=== PATIENT | male | born 1980 | race Caucasian/White ===

== ENCOUNTER 2020-09-08 20:50 | Inpatient (IN) ==
[~2020-09-08 20:50] MED LIST: ATROPINE SULFATE 0.1 MG/ML 10ML SYR IV ONE; CALCIUM CHLORIDE 10% 10 ML SYR IV ONE; MAGNESIUM SULFATE 1GM / D5W BAG IV ONE
[2020-09-08] MEDS ORDERED: dexAMETHasone**PF** 10 MG/ML VIAL IV ONE (21:05)
[2020-09-08] MEDS ORDERED: ALBUTEROL HFA 8 GM INHALER INH ONE (21:06)
[2020-09-08] MEDS ORDERED: MAGNESIUM SULFATE / D5W 1 GM/100 ML BAG IV STA (21:59)
[2020-09-08] MEDS ORDERED: ATROPINE SULFATE 0.1 MG/ML 10ML SYR IV STA (22:01)
[2020-09-08] MEDS ORDERED: CALCIUM GLUCONATE 1,000 MG/60 ML BAG IV STA (22:01)
[2020-09-08] MEDS ORDERED: SODIUM CHLORIDE 0.9% 1000ML 2,000 ML IV ONE (22:02)
[2020-09-08 22:03] LABS: Basophils # (auto) 0.02 K/uL (0-0.2); Basophils % (auto) 0.7 %; Eosinophils # (auto) 0.01 K/uL (0-0.5); Eosinophils % (auto) 0.3 %; Hematocrit (blood only) 46.3 % (42-52); Hemoglobin 16.7 g/dL (14.0-18.0); Lymphocytes # (auto) 1.15 K/uL (1.2-3.4); Lymphocytes % (auto) 37.8 %; Mean Corpuscular Hemoglobin 32.7 pg (25-34); Mean Corpuscular Hgb Conc 36.1 g/dL (32-36); Mean Corpuscular Volume 90.6 fL (80-100); Mean Platelet Volume 10.2 fL (7.4-10.4); Monocytes # (auto) 0.34 K/uL (0.11-0.59); Monocytes % (auto) 11.2 %; Neutrophils # (auto) 1.52 K/uL (1.4-6.5); Platelet Count 174 K/uL (130-400); RDW Coefficient of Variation 12.2 % (11.5-14.5); RDW Standard Deviation 40.9 fL (36.4-46.3); Red Blood Count 5.11 M/uL (4.7-6.1); White Blood Count 3.04 K/uL (4.8-10.8)
[2020-09-08 22:14] LABS: INR 1.1 (0.9-1.1); Partial Thromboplastin Ratio 1.2; Partial Thromboplastin Time 30.6 Seconds (21.0-31.0); Prothrombin Time 11.1 Seconds (9.0-12.0)
[2020-09-08 22:22] LABS: Alanine Aminotransferase 34 U/L (12-78); Albumin Level 3.8 gm/dl (3.4-5.0); Aspartate Aminotransferase 26 U/L (15-37); BUN Creatinine Ratio 9.6 (10-20); Blood Urea Nitrogen 10 mg/dl (7-18); C Reactive Protein 1.25 mg/dl (0-0.29); Calcium 9.2 mg/dl (8.5-10.1); Carbon Dioxide 30 mmol/L (21-32); Chloride 103 mmol/L (98-107); Creatinine Clr Calc Pharmacy 99.5 ml/min; Est GFR (African American) 103.4; Est GFR (Non-African American) 89.2; Glucose 102 mg/dl (70-99); Magnesium 1.9 mg/dl (1.8-2.4); Potassium 3.4 mmol/L (3.5-5.1); Sodium 138 mmol/L (136-145)
[2020-09-08 22:25] LABS: Albumin Globulin Ratio 1.1 (0.9-2); Alkaline Phosphatase 56 U/L (45-117); Bilirubin,Total 0.3 mg/dl (0.2-1); Creatine Kinase 44 U/L (39-308); Creatine Kinase MB < 1.0 ng/ml (0.5-3.6); Ferritin 237.2 ng/ml (8-388); Globulin 3.6 gm/dl (2.5-4.0); Total Protein 7.4 gm/dl (6.4-8.2); Troponin I < 0.015 ng/ml (0-0.045)
[2020-09-08] MEDS ORDERED: OPTIRAY 320 125ml IV ONE (22:38)
--- NOTE | 2020-09-08 23:01 | Emergency Department Note ---
Impression & Plan Sinus pause, COVID-19 ED Provider Note NAME: GREG CAVAZOS AGE: 40 SEX: M : 1980 ARRIVES VIA: Walk-In INFORMANT: Patient, ED PROVIDER(S): Iain Byrd MD CHIEF COMPLAINT: covid +, symptoms HPI: This is a 40-year-old male who presents to the emergency department complaining of Covid-like symptoms. Patient reports he went to [facility] on Wednesday and was diagnosed with Covid. He reports he has been having worsening symptoms with shortness of breath with exertion. He reports rest makes the shortness of breath better. He reports fevers and chills that have been getting worse over the past several days. He reports not taking anything for his symptoms. He called the on-call nurse who sent him to the emergency department. ROS: See above HPI for pertinent positives & negatives. A total of 10 systems reviewed and were otherwise negative. PAST MEDICAL HISTORY: See Below PAST SURGICAL HISTORY: See Below FAMILY HISTORY: See Below SOCIAL HISTORY: See Below HOME MEDICATIONS: See Below ALLERGIES: See Below VITALS: See Below PHYSICAL EXAMINATION: VITAL SIGNS - Vital signs and nursing notes were reviewed. GENERAL - 40-year-old male appearing stated age who is in no acute distress. SKIN - Without rashes. HEAD - NC/AT. EYES - PERRL with EOMI bilaterally. Sclera anicteric. Palpebral conjunctiva pink and moist with no injection noted. EARS - No deformities of external structures noted on gross examination bilaterally. NOSE - Midline and without cyanosis. No epistaxis or purulent drainage noted. Septum midline without deviation or septal hematoma noted. MOUTH/OROPHARYNX - Without perioral cyanosis. Buccal mucosa pink and moist and without leukoplakia. Tongue midline with equal elevation of palate bilaterally. No tonsillar hypertrophy, erythema, or exudates noted. dentition noted. NECK - Neck with FROM. Supple to palpation. lymphadenopathy noted. No nuchal rigidity. LUNGS - Chest wall symmetric without accessory muscle use, intercostals retractions, or central cyanosis. Normal vesicular breath sounds CTA B/L. No wheezes, rales, or rhonchi appreciated. CARDIAC - RRR with S1/S2. No murmur, rubs, or gallops appreciated. ABDOMEN - Abdominal contour without pulsations or visible masses. BS normoactive all four quadrants. No tenderness, palpable masses, hepatosplenomegaly, or ascites noted. EXTREMITIES - No clubbing or peripheral cyanosis. No pretibial edema present. +3/5 radial, posterior tibial, and dorsalis pedis pulses palpated throughout. +5/5 strength noted in UE/LE bilaterally. NEUROLOGIC - Cranial nerves II through XII grossly intact. Sensory intact to light touch throughout. Patellar reflexes +2/4. PSYCH - A&Ox3 and cooperates fully with examiner. Pt is very pleasant and interacts well with examiner. MEDICAL DECISION MAKING: Patient was seen and evaluated as above in room A10. Review was performed of n ursing notes and vital signs. I did review pertinent previous visits and patient history. After obtaining a thorough history and physical examination the above work up was performed. This is a 40-year-old male who presents emergency department complaining of flulike symptoms. The patient is positive for Covid. As the patient was having an IV started he had a very long sinus pause that resulted in several seconds of CPR. A CODE BLUE was activated the patient was given IV atropine which imm ediately appeared to correct the problem. Due to the nature of the incident I did discuss the case with both casino floor walker as well as hospitalist and ICU and the patient was admitted to the hospital. An order was placed for continuous cardiac monitoring. The monitor shows a rate of 72 with Normal SInus rhythm. The patient was evaluated during a period of high volume and high acuity during the global COVID-19 pandemic, and that diagnosis was suspected/considered upon their initial presentation. Their evaluation, treatment and testing was consistent with current guidelines for patients who present with complaints or symptoms that may be related to COVID-19. Patient was seen while provider was wearing PPE. Triage Nursing notes reviewed. Prior medical records reviewed Vital Signs: reviewed and remarkable for no significant abnormalities Differential diagnosis: Reactive airway disease, pneumonia, pneumothorax, COPD, CHF, infections, cardiac ischemia, pulmonary embolism, musculoskeletal, gastrointestinal, as well as other pathologies. ER treatment provided: See below Diagnostics interpreted by me: ECG: EKG shows a normal sinus rhythm normal EKG no ST elevation or depression QTC is 392 ventricular rate is 74 Repeat EKG after the syncopal event shows a normal sinus rhythm normal EKG no ST elevation or depression QTC is 415 ventricular rate of 76 it is unchanged from the previous Repeat EKG shows a normal sinus rhythm normal EKG QTC is 392 ventricular rate of [address] elevation or depression it is unchanged from the previous Laboratory studies: As stated above and show below. Imaging studies: 1 view of the chest was interpreted by me shows no evidence of pneumonia congestion or pneumothorax CTA of the chest no PE. Multifocal bilateral airspace opacities consistent with Covid. No pleural effusion or pneumothorax. Consultation(s): I did discuss the case with both interventional cardiology, cardiology, ICU as well as hospitalist Critical Care: I have personally spent greater than 30 minutes of critical care time in the direct management of this patient. This includes bedside care, interpretation of diagnostic studies, and testing, discussion with consultants, patient, and family members, and other required patient management activities. This 30 minutes is in excess of all separately billable procedures. Past Med/Surg History Medical History No significant past medical history Surgical History History of appendectomy History of vasectomy Family History Father Heart disease Myocardial infarction Mother Gallbladder disease Grandmother Breast cancer Social History Smoking Status: Never smoker Second Hand Exposure: No; Hx Alcohol Use: Yes Alcohol type: beer and wine Alcohol Intake Frequency Comment: 1-2 beer/wine Hx Substance Use: No Preferred Language: [place] Communication Ability: Effective Visual Impairment: No Limitations Hearing Ability: Normal Signal Person Required: No Beliefs That Will Affect Care: None marital status: Current Living Situation: Family current occupational status: employed 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 Feels Safe at Home: Yes Childhood Exposure to Second-Hand Smoke: No Dental Care, Regularly: Yes Physical Activity Frequency: 1-2 Times per Week Assistive Devices: None Allergies Allergies Allergy/AdvReac Type Severity Reaction Status Date / Time No Known Allergies Allergy Unverified 09/08/20 21:53 Home Meds Home Medications Medication Instructions Recorded Confirmed acetaminophen 500 mg PO Q6H PRN 09/08/20 09/08/20 ibuprofen 200 mg PO Q6H PRN 09/08/20 09/08/20 Results & Data (ED) Vital Signs Vital Signs - 24 hr 09/08/20 20:53 09/08/20 21:44 09/08/20 21:56 Temperature 37.4 C Temperature Source Temporal Artery Scan Pulse Rate 91 H 37 L 68 Pulse Rate from SpO2 Sensor 41 L Respiratory Rate 18 17 25 H Respiratory Depth Normal Blood Pressure 165/75 H 140/83 142/61 H Blood Pressure Mean 105 102 88 Pulse Oximetry 98 92 Oxygen Delivery Method Room Air Room Air Sepsis New/Unexplained Change in Mental Status N/A Sepsis Action Taken by Nursing No Action Required 09/08/20 22:00 09/08/20 22:01 09/08/20 22:15 Temperature Temperature Source Pulse Rate 71 74 73 Pulse Rate from SpO2 Sensor 70 74 74 Respiratory Rate 18 Respiratory Depth Blood Pressure 131/75 128/76 Blood Pressure Mean 93 93 Pulse Oximetry 97 99 99 Oxygen Delivery Method Room Air Room Air Room Air Sepsis New/Unexplained Change in Mental Status Sepsis Action Taken by Nursing 09/08/20 22:16 Temperature Temperature Source Pulse Rate 72 Pulse Rate from SpO2 Sensor 72 Respiratory Rate 16 Respiratory Depth Blood Pressure Blood Pressure Mean Pulse Oximetry 96 Oxygen Delivery Method Room Air Sepsis New/Unexplained Change in Mental Status Sepsis Action Taken by Nursing Laboratory Data Result diagrams: 09/09/20 06:19 09/09/20 06:19 Lab Results 09/08/20 09/08/20 09/08/20 Range/Units 21:37 21:37 21:37 WBC 3.04 L (4.8-10.8) K/uL RBC 5.11 (4.7-6.1) M/uL Hgb 16.7 (14.0-18.0) g/dL Hct 46.3 (42-52) % MCV 90.6 (80-100) fL MCH 32.7 (25-34) pg MCHC 36.1 H (32-36) g/dL RDW Std Deviation 40.9 (36.4-46.3) fL RDW Coeff of Leena 12.2 (11.5-14.5) % Plt Count 174 (130-400) K/uL MPV 10.2 (7.4-10.4) fL Immature Gran % (Auto) 0.0 % Neut % (Auto) 50.0 % Lymph % (Auto) 37.8 % Donley % (Auto) 11.2 % Eos % (Auto) 0.3 % Baso % (Auto) 0.7 % Neut # (Auto) 1.52 (1.4-6.5) K/uL Lymph # (Auto) 1.15 L (1.2-3.4) K/uL Donley # (Auto) 0.34 (0.11-0.59) K/uL Eos # (Auto) 0.01 (0-0.5) K/uL Baso # (Auto) 0.02 (0-0.2) K/uL Immature Gran # (Auto) 0.00 (0.00-0.02) K/uL ESR 13 (0-14) mm/hr PT 11.1 (9.0-12.0) Seconds INR 1.1 (0.9-1.1) APTT 30.6 (21.0-31.0) Seconds PTT Ratio 1.2 Sodium (136-145) mmol/L Potassium (3.5-5.1) mmol/L Chloride (98-107) mmol/L Carbon Dioxide (21-32) mmol/L Anion Gap (3-11) BUN (7-18) mg/dl Creatinine (0.6-1.4) mg/dl Est Cr Clr Drug Dosing ml/min Est GFR ( Amer) Est GFR (Non-Af Amer) BUN/Creatinine Ratio (10-20) Glucose (70-99) mg/dl Lactate (0.4-2.0) mmol/L Calcium (8.5-10.1) mg/dl Phosphorus (2.5-4.9) mg/dl Magnesium (1.8-2.4) mg/dl Ferritin (8-388) ng/ml Total Bilirubin (0.2-1) mg/dl AST (15-37) U/L ALT (12-78) U/L Alkaline Phosphatase (45-117) U/L Lactate Dehydrogenase (87-241) U/L Total Creatine Kinase (39-308) U/L CK-MB (CK-2) (0.5-3.6) ng/ml CK/CKMB % Calc Troponin I (0-0.045) ng/ml C-Reactive Protein (0-0.29) mg/dl Total Protein (6.4-8.2) gm/dl Albumin (3.4-5.0) gm/dl Globulin (2.5-4.0) gm/dl Albumin/Globulin Ratio (0.9-2) Procalcitonin (0-0.5) ng/ml Lyme Disease IgG Ab (Negative) Lyme Disease IgM Ab (Negative) 09/08/20 09/08/20 09/08/20 Range/Units 21:37 21:37 21:37 WBC (4.8-10.8) K/uL RBC (4.7-6.1) M/uL Hgb (14.0-18.0) g/dL Hct (42-52) % MCV (80-100) fL MCH (25-34) pg MCHC (32-36) g/dL RDW Std Deviation (36.4-46.3) fL RDW Coeff of Leena (11.5-14.5) % Plt Count (130-400) K/uL MPV (7.4-10.4) fL Immature Gran % (Auto) % Neut % (Auto) % Lymph % (Auto) % Donley % (Auto) % Eos % (Auto) % Baso % (Auto) % Neut # (Auto) (1.4-6.5) K/uL Lymph # (Auto) (1.2-3.4) K/uL Donley # (Auto) (0.11-0.59) K/uL Eos # (Auto) (0-0.5) K/uL Baso # (Auto) (0-0.2) K/uL Immature Gran # (Auto) (0.00-0.02) K/uL ESR (0-14) mm/hr PT (9.0-12.0) Seconds INR (0.9-1.1) APTT (21.0-31.0) Seconds PTT Ratio Sodium 138 (136-145) mmol/L Potassium 3.4 L (3.5-5.1) mmol/L Chloride 103 (98-107) mmol/L Carbon Dioxide 30 (21-32) mmol/L Anion Gap 5.0 (3-11) BUN 10 (7-18) mg/dl Creatinine 1.03 (0.6-1.4) mg/dl Est Cr Clr Drug Dosing 99.5 ml/min Est GFR ( Amer) 103.4 Est GFR (Non-Af Amer) 89.2 BUN/Creatinine Ratio 9.6 L (10-20) Glucose 102 H (70-99) mg/dl Lactate 1.1 (0.4-2.0) mmol/L Calcium 9.2 (8.5-10.1) mg/dl Phosphorus 2.8 (2.5-4.9) mg/dl Magnesium 1.9 (1.8-2.4) mg/dl Ferritin 237.2 (8-388) ng/ml Total Bilirubin 0.3 (0.2-1) mg/dl AST 26 (15-37) U/L ALT 34 (12-78) U/L Alkaline Phosphatase 56 (45-117) U/L Lactate Dehydrogenase 202 (87-241) U/L Total Creatine Kinase 44 (39-308) U/L CK-MB (CK-2) < 1.0 (0.5-3.6) ng/ml CK/CKMB % Calc TNP Troponin I < 0.015 (0-0.045) ng/ml C-Reactive Protein 1.25 H (0-0.29) mg/dl Total Protein 7.4 (6.4-8.2) gm/dl Albumin 3.8 (3.4-5.0) gm/dl Globulin 3.6 (2.5-4.0) gm/dl Albumin/Globulin Ratio 1.1 (0.9-2) Procalcitonin (0-0.5) ng/ml Lyme Disease IgG Ab (Negative) Lyme Disease IgM Ab (Negative) 09/08/20 09/08/20 Range/Units 21:37 21:37 WBC (4.8-10.8) K/uL RBC (4.7-6.1) M/uL Hgb (14.0-18.0) g/dL Hct (42-52) % MCV (80-100) fL MCH (25-34) pg MCHC (32-36) g/dL RDW Std Deviation (36.4-46.3) fL RDW Coeff of Leena (11.5-14.5) % Plt Count (130-400) K/uL MPV (7.4-10.4) fL Immature Gran % (Auto) % Neut % (Auto) % Lymph % (Auto) % Donley % (Auto) % Eos % (Auto) % Baso % (Auto) % Neut # (Auto) (1.4-6.5) K/uL Lymph # (Auto) (1.2-3.4) K/uL Donley # (Auto) (0.11-0.59) K/uL Eos # (Auto) (0-0.5) K/uL Baso # (Auto) (0-0.2) K/uL Immature Gran # (Auto) (0.00-0.02) K/uL ESR (0-14) mm/hr PT (9.0-12.0) Seconds INR (0.9-1.1) APTT (21.0-31.0) Seconds PTT Ratio Sodium (136-145) mmol/L Potassium (3.5-5.1) mmol/L Chloride (98-107) mmol/L Carbon Dioxide (21-32) mmol/L Anion Gap (3-11) BUN (7-18) mg/dl Creatinine (0.6-1.4) mg/dl Est Cr Clr Drug Dosing ml/min Est GFR ( Amer) Est GFR (Non-Af Amer) BUN/Creatinine Ratio (10-20) Glucose (70-99) mg/dl Lactate (0.4-2.0) mmol/L Calcium (8.5-10.1) mg/dl Phosphorus (2.5-4.9) mg/dl Magnesium (1.8-2.4) mg/dl Ferritin (8-388) ng/ml Total Bilirubin (0.2-1) mg/dl AST (15-37) U/L ALT (12-78) U/L Alkaline Phosphatase (45-117) U/L Lactate Dehydrogenase (87-241) U/L Total Creatine Kinase (39-308) U/L CK-MB (CK-2) (0.5-3.6) ng/ml CK/CKMB % Calc Troponin I (0-0.045) ng/ml C-Reactive Protein (0-0.29) mg/dl Total Protein (6.4-8.2) gm/dl Albumin (3.4-5.0) gm/dl Globulin (2.5-4.0) gm/dl Albumin/Globulin Ratio (0.9-2) Procalcitonin < 0.05 (0-0.5) ng/ml Lyme Disease IgG Ab Negative (Negative) Lyme Disease IgM Ab Negative (Negative) Administered Medications Discontinued Medications Acetaminophen (Acetaminophen 500 Mg Tab) 500 mg PO Q6H PRN PRN Reason: Pain Stop: 10/09/20 00:30 Last Admin: 09/09/20 07:37 Dose: 500 mg Documented by: [id number] Albuterol (Albuterol Hfa 8 Gm Inhaler) 2 puffs INH NOW ONE Stop: 09/08/20 21:07 Last Admin: 09/08/20 22:07 Dose: 2 puffs Documented by: [id number] Atropine Sulfate (Atropine Sulfate 0.1 Mg/Ml 10ml Syr) 0.5 mg IV NOW STA Stop: 09/08/20 22:02 Last Admin: 09/08/20 21:52 Dose: 0.5 mg Documented by: [id number] Atropine Sulfate (Atropine Sulfate 0.1 Mg/Ml 10ml Syr) 0.5 mg IV PRN STA Stop: 09/09/20 01:13 Last Admin: 09/09/20 07:29 Dose: Not Given Documented by: [id number] Atropine Sulfate (Atropine Sulfate 0.1 Mg/Ml 10ml Syr) Confirm Administered Dose 1 mg IV .STK-MED ONE Stop: 09/09/20 01:18 Last Admin: 09/09/20 07:29 Dose: Not Given Documented by: [id number] Dexamethasone Sodium Phosphate (DexamethasonePf 10 Mg/Ml Vial) 6 mg IV NOW ONE Stop: 09/08/20 21:06 Last Admin: 09/08/20 22:06 Dose: 6 mg Documented by: [id number] Enoxaparin Sodium (Enoxaparin Inj 40 Mg/0.4 Ml Syr) 40 mg SQ Q12H CHERELLE Stop: 10/09/20 08:59 Last Admin: 09/09/20 07:37 Dose: 40 mg Documented by: [id number] Magnesium Sulfate/Dextrose (Magnesium Sulfate / D5w) 1 gm in 100 mls @ 100 mls/hr IV NOW STA Stop: 09/08/20 22:58 Last Infusion: 09/08/20 23:06 Dose: 100 mls/hr Documented by: [id number] Admin: 09/08/20 22:06 Dose: 100 mls/hr Documented by: [id number] Calcium Gluconate () 1,000 mg in 60 mls @ 240 mls/hr IV NOW STA Stop: 09/08/20 22:15 Last Infusion: 09/08/20 22:27 Dose: 240 mls/hr Documented by: [id number] Admin: 09/08/20 21:52 Dose: 240 mls/hr Documented by: [id number] Sodium Chloride (Nss 1000ml) 2,000 mls @ 999 mls/hr IV .Q2H1M ONE Stop: 09/09/20 00:02 Last Infusion: 09/09/20 00:06 Dose: 999 mls/hr Documented by: [id number] Admin: 09/08/20 22:05 Dose: 999 mls/hr Documented by: [id number] Potassium Chloride (K Tony / Wtr) 10 meq in 100 mls @ 100 mls/hr IV Q1H CHERELLE Stop: 09/09/20 00:29 Last Admin: 09/09/20 07:30 Dose: Not Given Documented by: [id number] Infusion: 09/09/20 00:13 Dose: 100 mls/hr Documented by: [id number] Admin: 09/08/20 23:13 Dose: 100 mls/hr Documented by: [id number] Ioversol (Optiray 320 125ml) 120 ml IV ONCE ONE Stop: 09/08/20 22:39 Last Admin: 09/08/20 22:39 Dose: 120 ml Documented by: [id number] Potassium Chloride (Potassium Chloride Crtab 20 Meq Tabcr) 40 meq PO NOW STA Stop: 09/09/20 00:16 Last Admin: 09/09/20 00:51 Dose: 40 meq Documented by: [id number] Discharge Plan Visit Data Chief Complaint: Fever Stated Complaint: FEVER 102-JOINT PAIN-COVID POSITIVE SINCE WEDNESDAY ED Provider: Iain Byrd Discharge Problem: Sinus pause, COVID-19 Patient Disposition: Admitted As Inpatient Condition: Good Discharge Instructions Interventions: ED Discharge Assessment Last Done: 09/08/20 23:38
--- NOTE | 2020-09-08 23:06 | History & Physical Report ---
Date of Service September 08, 2020 Assessment & Plan (1) COVID-19: 40yo C male with no significant past medical history presenting with Covid-19. Patient afebrile presently, no respiratory distress. Adequate oxygenation on room air. Labs with leukopenia and lymphopenia. CRP elevated at 1.25. Otherwise unremarkable. Procalcitonin, Troponin, LDH, Ferritin and ESR are all within normal range. Patient was given 6mg Dexamethasone in the ER Saturations are acceptable at this time, > 94% without use of supplemental O2 Patient is appx on day 8 of illness. -Admit to MICU. Maintain isolation precautions for Covid-19 - contact and airborne -Symptomatic care - Tylenol PRN pain or fever -Guaifenesin as needed for cough -Albuterol PRN cough -Lovenox 40mg BID for DVT ppx (2) Cardiac arrest: Patient with three episodes of asystole while in the ER requiring brief course of CPR. He was administered Calcium gluconate and Atropine with ROSC and normal sinus rhythm. Patient with no underlying cardiac disease. EKG and troponin are normal. Mild hypokalemia of 3.4 which is being repleted. Limited bedside echocardiogram with structurally normal heart - no failure, effusion, WMA. CTA with no PE or other cardiovascular abnormalities. Initial episode occurred while patient was having his blood drawn and seemed to be preceded by sinus bradycardia which progressed to asystole. Patient reports prodromal symptom of feeling warm and flush. Uncertain if this represents exaggerated vagal response. Patient presently in NSR. AA&O. No complaints. -Admit to MICU -Check Lyme serology -Optimize electrolytes -Formal echocardiogram -Cardiology consultation appreciated F/E/N - Patient received 2L NSS in ER. Heplock. Encourage PO intake. K repletion with 40meq PO + 10mEq IV, repeat labs in AM, regular diet as tolerated Ppx - Lovenox 40 BID Code - Full Dispo - Admit to MICU POC - - Lyly Spaulding - [phone]. Present at bedside. Present on Admission?: Yes History of Present Illness Chief Complaint: Covid-19 Primary Care Provider: Guevara Messer Holden Spaulding is a 40yo C male with no significant past medical history presenting with Covid-19. Patient began having symptoms appx 8 days ago with loss of taste and smell, fatigue and myalgias. He [facility] His symptoms began to worsen yesterday and he developed a fever at home, worsening VILLALOBOS. He denies chest pain, palpitations, SOB. Cough is minimal. He has been monitoring his pulse ox at home which has been 94% or greater. His notes that he is visibly tachypneic at times. Upon arrival to the ER patient found to be afebrile, HR 91, BP 165/75, RR 18, 98% on room air. Patient was having blood drawn in the ER. He reports feeling warm and flushed. Nurse reports patient turned osorio in color and his eyes rolled back and he became unresponsive. On monitor patient was bradycardic then asystolic. A Code Blue was called. He received a brief course of chest compressions and regained pulse, sinus bradycardia on monitor. Patient lost his pulse a second time and was asystolic on monitor again. Chest compressions were resumed and patient was given calcium gluconate x 1gm and and 0.5 mg of Atropine. Patient returned to NSR. Patient with no complaints at this time. He has no personal history of cardiac disease or conduction abnormalities. No family history of premature CAD or SCD. No additional complaints at this time. ER Course: Albuterol 2 puffs, Magnesium x 1gm, Dexamethasone x 6mg, NSS x 2 liters, Atropine x 0.5mg, Calcium gluconate x 1gm Allergies Allergy/AdvReac Type Severity Reaction Status Date / Time No Known Allergies Allergy Unverified 09/08/20 21:53 Home Medications Medication Instructions Recorded Confirmed Type acetaminophen [Tylenol Extra 500 mg PO Q6H PRN 09/08/20 09/08/20 History Strength] ibuprofen 200 mg PO Q6H PRN 09/08/20 09/08/20 History Past Med/Surg History Medical History (Updated 09/08/20 @ 23:01 by Yohana Cabrera DO) No significant past medical history Surgical History (Updated 08/10/19 @ 09:10 by Ambika Estrada) History of appendectomy History of vasectomy Family History (Updated 08/10/19 @ 09:14 by Ambika Estrada) Father Heart disease Myocardial infarction Mother Gallbladder disease Grandmother Breast cancer Social History (Updated 08/10/19 @ 09:20 by Ambika Estrada) Smoking Status: Never smoker Hx Alcohol Use: Yes Alcohol type: beer and wine Alcohol Intake Frequency Comment: 1-2 beer/wine Hx Substance Use: No Preferred Language: Hungarian Visual Impairment: No Limitations Hearing Ability: Normal marital status: Current Living Situation: Spouse and Family current occupational status: employed 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 Feels Safe at Home: Yes Childhood Exposure to Second-Hand Smoke: No Dental Care, Regularly: Yes Physical Activity Frequency: 1-2 Times per Week Review of Systems Review of Systems: All systems reviewed & are unremarkable except as noted in HPI & below Physical Exam Physical Exam: General: patient resting comfortably, NAD, non-toxic in appearance, AA&O x 4 Skin: warm, dry, intact, no rashes or lesions HEENT: NC/AT, PERRL, EOMI, anicteric sclera, conjunctiva without injection, external ear normal to inspection and nontender, nares patent, moist mucus membranes, dentition intact, no oropharyngeal lesions, neck supple, trachea midline, no LAD, no thyromegaly, no JVD Heart: +S1/S2, regular, no m/r/g Lungs: equal air entry bilaterally, no rales/rhonchi/wheezes Abd: +BS, soft, NT/ND, no masses/organomegaly/ascites Ext: warm, 2+ pulses in UE/LE bilaterally, no clubbing/cyanosis or edema Neuro: nonfocal, patient AA&O x 4, speech intact, no facial droop, moving all extremities on command with equal strength 5/5 Results & Data Results & Data ([facility]) Vital Signs (Past 12 Hours) Vital Signs Temp Pulse Resp BP Pulse Ox 09/08/20 22:16 72 16 96 09/08/20 22:15 73 18 128/76 99 09/08/20 22:01 74 99 09/08/20 22:00 71 131/75 97 09/08/20 21:56 68 25 H 142/61 H 09/08/20 21:44 37 L 17 140/83 92 09/08/20 20:53 37.4 C 91 H 18 165/75 H 98 Laboratory Results Lab Results 09/08/20 09/08/20 09/08/20 Range/Units 21:37 21:37 21:37 WBC 3.04 L (4.8-10.8) K/uL RBC 5.11 (4.7-6.1) M/uL Hgb 16.7 (14.0-18.0) g/dL Hct 46.3 (42-52) % MCV 90.6 (80-100) fL MCH 32.7 (25-34) pg MCHC 36.1 H (32-36) g/dL RDW Std Deviation 40.9 (36.4-46.3) fL RDW Coeff of Leena 12.2 (11.5-14.5) % Plt Count 174 (130-400) K/uL MPV 10.2 (7.4-10.4) fL Immature Gran % (Auto) 0.0 % Neut % (Auto) 50.0 % Lymph % (Auto) 37.8 % Woodford % (Auto) 11.2 % Eos % (Auto) 0.3 % Baso % (Auto) 0.7 % Neut # (Auto) 1.52 (1.4-6.5) K/uL Lymph # (Auto) 1.15 L (1.2-3.4) K/uL Woodford # (Auto) 0.34 (0.11-0.59) K/uL Eos # (Auto) 0.01 (0-0.5) K/uL Baso # (Auto) 0.02 (0-0.2) K/uL Immature Gran # (Auto) 0.00 (0.00-0.02) K/uL ESR 13 (0-14) mm/hr PT 11.1 (9.0-12.0) Seconds INR 1.1 (0.9-1.1) APTT 30.6 (21.0-31.0) Seconds PTT Ratio 1.2 Sodium (136-145) mmol/L Potassium (3.5-5.1) mmol/L Chloride (98-107) mmol/L Carbon Dioxide (21-32) mmol/L Anion Gap (3-11) BUN (7-18) mg/dl Creatinine (0.6-1.4) mg/dl Est Cr Clr Drug Dosing ml/min Est GFR ( Amer) Est GFR (Non-Af Amer) BUN/Creatinine Ratio (10-20) Glucose (70-99) mg/dl Calcium (8.5-10.1) mg/dl Magnesium (1.8-2.4) mg/dl Ferritin (8-388) ng/ml Total Bilirubin (0.2-1) mg/dl AST (15-37) U/L ALT (12-78) U/L Alkaline Phosphatase (45-117) U/L Lactate Dehydrogenase (87-241) U/L Total Creatine Kinase (39-308) U/L CK-MB (CK-2) (0.5-3.6) ng/ml CK/CKMB % Calc Troponin I (0-0.045) ng/ml C-Reactive Protein (0-0.29) mg/dl Total Protein (6.4-8.2) gm/dl Albumin (3.4-5.0) gm/dl Globulin (2.5-4.0) gm/dl Albumin/Globulin Ratio (0.9-2) Procalcitonin (0-0.5) ng/ml 09/08/20 09/08/20 09/08/20 Range/Units 21:37 21:37 21:37 WBC (4.8-10.8) K/uL RBC (4.7-6.1) M/uL Hgb (14.0-18.0) g/dL Hct (42-52) % MCV (80-100) fL MCH (25-34) pg MCHC (32-36) g/dL RDW Std Deviation (36.4-46.3) fL RDW Coeff of Leena (11.5-14.5) % Plt Count (130-400) K/uL MPV (7.4-10.4) fL Immature Gran % (Auto) % Neut % (Auto) % Lymph % (Auto) % Woodford % (Auto) % Eos % (Auto) % Baso % (Auto) % Neut # (Auto) (1.4-6.5) K/uL Lymph # (Auto) (1.2-3.4) K/uL Woodford # (Auto) (0.11-0.59) K/uL Eos # (Auto) (0-0.5) K/uL Baso # (Auto) (0-0.2) K/uL Immature Gran # (Auto) (0.00-0.02) K/uL ESR (0-14) mm/hr PT (9.0-12.0) Seconds INR (0.9-1.1) APTT (21.0-31.0) Seconds PTT Ratio Sodium 138 (136-145) mmol/L Potassium 3.4 L (3.5-5.1) mmol/L Chloride 103 (98-107) mmol/L Carbon Dioxide 30 (21-32) mmol/L Anion Gap 5.0 (3-11) BUN 10 (7-18) mg/dl Creatinine 1.03 (0.6-1.4) mg/dl Est Cr Clr Drug Dosing 99.5 ml/min Est GFR ( Amer) 103.4 Est GFR (Non-Af Amer) 89.2 BUN/Creatinine Ratio 9.6 L (10-20) Glucose 102 H (70-99) mg/dl Calcium 9.2 (8.5-10.1) mg/dl Magnesium 1.9 (1.8-2.4) mg/dl Ferritin 237.2 (8-388) ng/ml Total Bilirubin 0.3 (0.2-1) mg/dl AST 26 (15-37) U/L ALT 34 (12-78) U/L Alkaline Phosphatase 56 (45-117) U/L Lactate Dehydrogenase 202 (87-241) U/L Total Creatine Kinase 44 (39-308) U/L CK-MB (CK-2) < 1.0 (0.5-3.6) ng/ml CK/CKMB % Calc TNP Troponin I < 0.015 (0-0.045) ng/ml C-Reactive Protein 1.25 H (0-0.29) mg/dl Total Protein 7.4 (6.4-8.2) gm/dl Albumin 3.8 (3.4-5.0) gm/dl Globulin 3.6 (2.5-4.0) gm/dl Albumin/Globulin Ratio 1.1 (0.9-2) Procalcitonin < 0.05 (0-0.5) ng/ml Diagnostic Findings CXR by my interpretation - no active process. No CHF, PTX or consolidation. CTA Chest - No PE. Multifocal bilateral airspace opacities consistent with Covid. No pleural effusion or pneumothorax. ECG Additional Comments: NSR, Normal axis, intervals and waveforms. No evidence of ischemia or strain Code Status & VTE Plan VTE Prophylaxis Plan VTE Prophylaxis will be ordered: Yes PG Care Time/CCT Total # of Minutes Spent Total Time Spent with Patient: Total time spent is greater than 50% in coordination of care (as documented) at patient's floor/unit and/or counseling patient: Coding Level of Care Code 19685 Initial Inpt Care Lvl 2 Diagnoses COVID-19 U07.1 Cardiac arrest I46.9
[2020-09-08] MEDS: POTASSIUM CHLORIDE / WTR 10 MEQ/100 ML PLCT IV SCH (23:13)
[2020-09-09] MEDS ORDERED: ICU PROTOCOL FOR HYPERGLYCEMIA PRN (00:15)
[2020-09-09] MEDS ORDERED: POTASSIUM CHLORIDE CRTAB 20 MEQ TABCR PO STA (00:15)
[2020-09-09] MEDS ORDERED: guaiFENesin SUGAR FREE 100 MG/5 ML UDC PO PRN (00:15)
[2020-09-09] MEDS ORDERED: ALBUTEROL HFA 8 GM INHALER INH PRN (00:15)
[2020-09-09 00:31] LABS: Phosphorus 2.8 mg/dl (2.5-4.9)
[2020-09-09] MEDS ORDERED: ACETAMINOPHEN 500 MG TAB PO PRN (00:31)
[2020-09-09] MEDS ORDERED: ATROPINE SULFATE 0.1 MG/ML 10ML SYR IV STA (01:12)
--- NOTE | 2020-09-09 01:14 | Critical Care Consultation ---
Date of Consultation September 09, 2020 Assessment & Plan (1) Admitted to intensive care unit: Reason Critically Ill: 40-year-old male with active COVID-19 infection who experienced significant sinus pauses with need for CPR briefly while in the emergency department. Patient requires close monitoring status post events. NEURO - * CAM ICU: NEGATIVE CARDIAC/VASCULAR - * Sinus pause/cardiac arrest: * Patient was noted to have presyncopal symptoms. Apparently, the patient did have bradycardia prior to the sinus arrest. Only required a brief period of compressions. This did occur approximately 3 separate times with sinus pauses. * Patient does have active COVID-19 infection. Interestingly, he is without chest pain or elevated troponin suggestive of myocarditis. Bedside echocardiogram demonstrated no significant findings otherwise. * Lyme serology ordered. * Formal a.m. echocardiogram. * Pacer pads in place to be used if needed. * Atropine at bedside. * Question if impressive vagal response versus underlying channelopathy. * Appreciate cardiology consultation * Monitor on telemetry. RESPIRATORY - * COVID-19 pneumonia. * Currently not requiring supplemental oxygen. GI/NUTRITION - * Diet as tolerated. RENAL/LYTES - * No significant electrolyte derangements. - * No concerns at this time. ENDO - * No history of diabetes or thyroid disease. * BSGs per unit protocol. ISS --> gtt per unit policy. HEME - * Stable H&H. ID - * COVID-19 infection * Currently relatively asymptomatic. Not requiring supplemental oxygen. No need for Decadron currently. Outside window of convalescent plasma/remdesivir therapy. LINES/IV ACCESS - * PIVs x2 DVT PROPHYLAXIS - * Hold * SCDs Thank you for allowing us to participate in the care of this patient. Please refer to my attending physician's documentation for any further recommendations. (2) Sinus pause: (3) Cardiac arrest: (4) COVID-19: History of Present Illness Attending Physician: Yohana Cabrera DO History of Present Illness Patient is a 40-year-old male with no significant past medical history who presented to the emergency department for evaluation of increasing shortness of breath, fatigue, body aches, and frequency of fever in the setting of recent diagnosis of COVID-19 infection. The patient has had 8 days of symptoms. He tested positive on Wednesday (09/02). Patient has been utilizing Tylenol intermittently for fevers. Upon evaluation in the emergency department, the patient had a 7-second sinus pause. This did require a few seconds of chest compressions. Apparently, the patient had 3 separate episodes of pausing. He was unconscious during these episodes. He recovered rapidly. He required no further intervention. Bedside echo demonstrated no wall abnormalities or other acute findings. Troponin was not elevated. Patient does not require supplemental oxygen. No other significant laboratory findings. Patient to be admitted for significant sinus pause/cardiac arrest for close hemodynamic monitoring. Upon assessment in the ICU, the patient is awake, alert, and oriented. He states that he has had shortness of breath of the last few days which has worsened. Other than aches and fevers, he offers no other significant ongoing symptoms. Patient reports that he has occasionally felt like he was going to pass out with blood draws, but has never done so. He reports that he has never syncopized in the past. No family history of sudden cardiac . He denies any ongoing chest pain. The patient offers no other complaints at this time. Allergies Allergy/AdvReac Type Severity Reaction Status Date / Time No Known Allergies Allergy Unverified 09/08/20 21:53 Home Medications Medication Instructions Recorded Confirmed Type acetaminophen [Tylenol Extra 500 mg PO Q6H PRN 09/08/20 09/08/20 History Strength] ibuprofen 200 mg PO Q6H PRN 09/08/20 09/08/20 History Patient History Medical History No significant past medical history Surgical History History of appendectomy History of vasectomy Family History Father Heart disease Myocardial infarction Mother Gallbladder disease Grandmother Breast cancer Social History Smoking Status: Never smoker Second Hand Exposure: No; Hx Alcohol Use: Yes Alcohol type: beer and wine Alcohol Intake Frequency Comment: 1-2 beer/wine Hx Substance Use: No Preferred Language: Sri Lankan Communication Ability: Effective Visual Impairment: No Limitations Hearing Ability: Normal Professor [employer] Management Required: No Beliefs That Will Affect Care: None marital status: Current Living Situation: Family current occupational status: employed 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 All else were negative. Physical Exam Physical Exam: VITAL SIGNS - Vital signs and nursing notes were reviewed. GENERAL - 40-year-old male appearing his stated age who is in no acute distress. Communicates well with provider and answers questions appropriately. HEAD - NC/AT. EYES - PERRL with EOMI bilaterally. Sclera anicteric. EARS - No deformities of external structures noted on gross examination bilaterally. NOSE - Midline and without cyanosis. No epistaxis or purulent drainage noted. MOUTH/OROPHARYNX - Without perioral cyanosis. Buccal mucosa pink and moist and without leukoplakia. NECK - Neck with FROM. LUNGS - Chest wall symmetric without accessory muscle use, intercostals retractions, or central cyanosis. Normal vesicular breath sounds CTA B/L. No wheezes, rales, or rhonchi appreciated. CARDIAC - RRR with S1/S2. No murmur, rubs, or gallops appreciated. No reproducible tenderness to palpation appreciated over the anterior chest wall. ABDOMEN - Abdominal contour flat without pulsations or visible masses. BS normoactive all four quadrants. No tenderness, palpable masses, hepatosp lenomegaly, or ascites noted. EXTREMITIES - No clubbing or peripheral cyanosis. No pretibial edema present. +3/5 radial and dorsalis pedis pulses palpated throughout. +5/5 strength noted in UE/LE bilaterally. NEUROLOGIC - Cranial nerves II through XII grossly intact. Sensory intact to light touch throughout. PSYCH - A&Ox3 and cooperates fully with examiner. Pt is very pleasant and interacts well with examiner. Results & Data Results & Data ([facility]) Vital Signs (Past 12 Hours) Vital Signs Temp Pulse Pulse Resp BP BP Pulse Ox 09/09/20 00:23 37 C 77 18 137/77 09/08/20 23:30 72 20 136/82 96 09/08/20 23:15 71 18 140/79 09/08/20 23:00 83 17 139/80 97 09/08/20 22:30 77 13 136/85 97 03/21/21 22:16 72 16 96 09/08/20 22:15 73 18 128/76 99 09/08/20 22:01 74 99 09/08/20 22:00 71 131/75 97 09/08/20 21:56 68 25 H 142/61 H 09/08/20 21:44 37 L 17 140/83 92 09/08/20 20:53 37.4 C 91 H 18 165/75 H 98 Coding Level of Care Code 36327 Inpt Consult Level 5 Diagnoses Admitted to intensive care unit Z78.9 Sinus pause I45.5 Cardiac arrest I46.9 COVID-19 U07.1 Time Spent (min) 35
[2020-09-09] MEDS ORDERED: ATROPINE SULFATE 0.1 MG/ML 10ML SYR IV ONE (01:17)
[2020-09-09 01:18] LABS: Lyme Ab IgG w/WB Rflx Negative (Negative); Lyme Ab IgM w/WB Rflx Negative (Negative)
[2020-09-09 06:34] LABS: Basophils # (auto) 0.01 K/uL (0-0.2); Basophils % (auto) 0.4 %; Hematocrit (blood only) 44.3 % (42-52); Hemoglobin 15.7 g/dL (14.0-18.0); Immature Granulocytes # (auto) 0.01 K/uL (0.00-0.02); Immature Granulocytes % (auto) 0.4 %; Lymphocytes % (auto) 34.9 %; Mean Corpuscular Hemoglobin 32.4 pg (25-34); Mean Corpuscular Hgb Conc 35.4 g/dL (32-36); Mean Corpuscular Volume 91.3 fL (80-100); Mean Platelet Volume 10.5 fL (7.4-10.4); Monocytes % (auto) 3.9 %; Neutrophils # (auto) 1.56 K/uL (1.4-6.5); Neutrophils % (auto) 60.4 %; Platelet Count 161 K/uL (130-400); RDW Coefficient of Variation 12.4 % (11.5-14.5); RDW Standard Deviation 41.7 fL (36.4-46.3); Red Blood Count 4.85 M/uL (4.7-6.1); White Blood Count 2.58 K/uL (4.8-10.8)
[2020-09-09 07:12] LABS: Alanine Aminotransferase 29 U/L (12-78); Albumin Level 3.4 gm/dl (3.4-5.0); Aspartate Aminotransferase 18 U/L (15-37); BUN Creatinine Ratio 10.1 (10-20); Bilirubin Direct < 0.1 mg/dl (0-0.2); Blood Urea Nitrogen 11 mg/dl (7-18); Calcium 9.2 mg/dl (8.5-10.1); Carbon Dioxide 30 mmol/L (21-32); Chloride 107 mmol/L (98-107); Creatinine Clr Calc Pharmacy 98.5 ml/min; Est GFR (African American) 102.2; Est GFR (Non-African American) 88.1; Glucose 141 mg/dl (70-99); Potassium 4.7 mmol/L (3.5-5.1); Sodium 140 mmol/L (136-145)
[2020-09-09] MEDS: POTASSIUM CHLORIDE / WTR 10 MEQ/100 ML PLCT IV SCH (07:30)
[2020-09-09 07:34] LABS: Alkaline Phosphatase 52 U/L (45-117); Bilirubin,Total 0.5 mg/dl (0.2-1); Phosphorus 2.6 mg/dl (2.5-4.9); Total Protein 6.7 gm/dl (6.4-8.2)
--- NOTE | 2020-09-09 08:04 | XRay Report ---
XR chest 1V portable HISTORY: SEPSIS COMPARISON: Chest 05/06/2016. FINDINGS: There are faint hazy airspace opacities within the lower lung zones. The heart is normal in size. No pleural effusions. No pneumothorax. IMPRESSION: Faint hazy airspace opacities within the lower lung zones consistent with a multifocal pneumonia. ACT 112: Negative or not required by law. Electronically signed by: Juan Mora M.D. 09/09/2020 8:03 AM
--- NOTE | 2020-09-09 08:07 | CT Scan Report ---
CHEST CTA for PULMONARY ARTERIES CT DOSE: 360.64 mGy.cm HISTORY: Fever. Shortness of breath. TECHNIQUE: Multiaxial CT images of the chest were performed following the intravenous administration of contrast to evaluate the pulmonary arteries. Maximal intensity projection images were also obtaine d. A dose lowering technique was utilized adhering to the principles of ALARA. COMPARISON STUDY: None. FINDINGS: Small scattered patchy groundglass airspace opacities most pronounced within the bilateral mid to lower lung zones. This is consistent with a multifocal viral pneumonia. Trace bilateral pleura l effusions. The central airways are patent. No pneumothorax. No suspicious lytic or blastic osseous lesions. A few prominent bilateral hilar lymph nodes. These are likely reactive. Limited views the up per abdomen demonstrate normal liver, spleen, and adrenal glands. Normal caliber thoracic aorta with no evidence for dissection. The esophagus is normal in caliber. No filling defects within the pulmona ry arteries to suggest pulmonary embolus. No fractures within the visualized osseous structures. IMPRESSION: 1. Small scattered groundglass airspace opacities consistent with a viral pneumonia. 2. No evidence for pulmonary embolus. 3. Trace bilateral pleural effusions. ACT 112: Negative or not required by law. Electronically signed by: Juan Mora M.D. 09/09/2020 8:06 AM
[2020-09-09] MEDS ORDERED: ENOXAPARIN INJ 40 MG/0.4 ML SYR SQ SCH (09:00)
--- NOTE | 2020-09-09 09:19 | Cardiology Consultation ---
Date of Consultation The patient is Covid positive. In a isolation room. Today's visit was completed as a telehealth visit due to Covid. I was in the hospital and so was the patient we communicated via phone. He consented to a phone visit. We confirmed his name and date of . I spent greater than 22 minutes reviewing his medical records and discussing his history and cardiac condition along with formulating an impression and plan. Holden is a very pleasant 40-year-old gentleman who is been training for a half marathon. He started to notice over the last 2 to 3 days that he was having symptoms of Covid including fevers and chills and a cough along with some shortness of breath. He was seen at [facility] and was told if he worsens that he may need additional therapy. He contacted his on-call physician who recommended he come to the hospital. Last evening I was contacted by the emergency room physician who noted at the time of drawing blood Holden had multiple long pauses which on the monitor consistent with sinus arrest which required initiation of CPR with tenriism of sinus rhythm. He had 3 episodes documented on the awake overnight monitor. He notes in the past when he has seen blood or had blood drawn or when he had an injury to his wrist he felt presyncopal with those episodes. He denies any syncope associated with micturition or defecation and outside of these episodes has never had syncope. As noted he is an incredibly good shape he recently ran 10 miles in anticipation of a half marathon plan for . He had no difficulty climbing hills. He denies any lightheadedness or dizziness or presyncopal symptoms with exercise. He denies any chest pain or chest pressure. With his most recent run he was starting to notice some shortness of breath associated with his Covid exposure. There is no family history of sudden cardiac , unexplained car accidents or unexplained drowning's. He is otherwise remarkably healthy. He has no medical problems. 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 He denies any tobacco. September 09, 2020 History of Present Illness Attending Physician: Eileen Garcia MD Allergies Allergy/AdvReac Type Severity Reaction Status Date / Time No Known Allergies Allergy Unverified 09/08/20 21:53 Home Medications Medication Instructions Recorded Confirmed Type acetaminophen [Tylenol Extra 500 mg PO Q6H PRN 09/08/20 09/08/20 History Strength] ibuprofen 200 mg PO Q6H PRN 09/08/20 09/08/20 History Patient History Medical History No significant past medical history Surgical History History of appendectomy History of vasectomy Family History Father Heart disease Myocardial infarction Mother Gallbladder disease Grandmother Breast cancer Social History Smoking Status: Never smoker Second Hand Exposure: No; Hx Alcohol Use: Yes Alcohol type: beer and wine Alcohol Intake Frequency Comment: 1-2 beer/wine Hx Substance Use: No Preferred Language: Yakut Communication Ability: Effective Visual Impairment: No Limitations Hearing Ability: Normal Inspector Toys Required: No Beliefs That Will Affect Care: None marital status: Current Living Situation: Family current occupational status: employed 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 Feels Safe at Home: Yes Childhood Exposure to Second-Hand Smoke: No Dental Care, Regularly: Yes Physical Activity Frequency: 1-2 Times per Week Assistive Devices: None Results & Data ([facility]) Vital Signs (Past 12 Hours) Vital Signs Temp Pulse Pulse Resp BP BP Pulse Ox 09/09/20 07:06 36.8 C 56 L 15 108/55 L 95 09/09/20 06:30 64 17 99 09/09/20 06:06 54 L 16 107/59 L 96 09/09/20 06:00 54 L 16 95 09/09/20 05:30 53 L 17 96 09/09/20 05:06 52 L 16 104/62 96 09/09/20 05:00 54 L 16 96 09/09/20 04:30 54 L 16 95 09/09/20 04:06 55 L 17 110/61 96 09/09/20 04:00 52 L 16 96 09/09/20 03:30 57 L 25 H 94 09/09/20 03:14 52 L 14 115/67 96 09/09/20 03:06 92 H 20 75/70 L 96 09/09/20 03:00 55 L 16 92 09/09/20 02:30 56 L 16 92 09/09/20 02:06 61 16 114/62 94 09/09/20 02:00 56 L 17 93 09/09/20 01:30 54 L 19 96 09/09/20 01:06 84 18 119/74 97 09/09/20 01:00 70 26 H 93 09/09/20 00:30 37.0 C 64 21 97 09/09/20 00:23 37 C 77 18 137/77 09/09/20 00:08 71 25 H 09/09/20 00:05 137/77 09/08/20 23:30 72 20 136/82 96 09/08/20 23:15 71 18 140/79 09/08/20 23:00 83 17 139/80 97 09/08/20 22:30 77 13 136/85 97 09/08/20 22:16 72 16 96 09/08/20 22:15 73 18 128/76 99 09/08/20 22:01 74 99 09/08/20 22:00 71 131/75 97 09/08/20 21:56 68 25 H 142/61 H 09/08/20 21:44 37 L 17 140/83 92 There is no exam as this visit was completed as a telephone visit. His EKGs were reviewed they revealed sinus rhythm and sinus bradycardia with early repolarization. There is no evidence of prolonged QT or Brugada pattern. His labs were reviewed in detail Impressions: 1. Sinus arrest secondary to high vagal tone with a history of presyncopal episodes in the past when seeing blood or having had an injury 2. COVID-19 infection 3. EKG shows NSR with normal intervals, normal QRS complexes, no ST elevation or depression, and no arrhythmias. I think this represents a high vagal tone given the fact he is in remarkably good aerobic shape. in addition he has had presyncope associated with blood blood draws and previous injury. There is nothing significantly abnormal. I did discuss with him if someone is to draw blood in the future or start an IV th at he should warn him that he has passed out in the past. There is nothing to suggest an arrhythmogenic syndrome. There is no family history suggesting this either. His carotid upstrokes in the ER were brisk suggesting he has normal LV function. I do not think he has myocarditis related to Covid as his troponin was negative.. An echocardiogram should be completed and assuming it is normal he can be discharged home from a cardiac standpoint. I did discuss with him he should refrain from any kind of exercise for 2 weeks after his symptoms of Covid resolve. At that point he can reinitiate exercise but if he starts to have shortness of breath or fatigue he needs to cut back until his symptoms improve. We also discussed that given his Covid infection he may not be ready to run a half marathon .
--- NOTE | 2020-09-09 10:15 | XCELERA ---
[id number]
--- NOTE | 2020-09-09 11:02 | Critical Care Progress Note ---
Date of Service September 09, 2020 Assessment & Plan (1) Sinus pause: (2) Admitted to intensive care unit: Impression: 40-year-old male with active COVID-19 infection who experienced significant sinus pauses with need for CPR briefly while in the emergency department. Patient requires close monitoring status post events. 24-hour events: None. Patient has been hemodynamically stable NEURO - CAM ICU: NEGATIVE CARDIAC/VASCULAR - Sinus pause/cardiac arrest: Patient was noted to have presyncopal symptoms. Apparently, the patient did have bradycardia prior to the sinus arrest. Only required a brief period of compressions. This did occur approximately 3 separate times with sinus pauses. Patient does have active COVID-19 infection. No signs of myocarditis Patient does have history of escalated vagal response but this is the first time that he had sinus pauses as per him Lyme serology negative Pacer pads in place to be used if needed. Atropine at bedside. Question if impressive vagal response versus underlying channelopathy. Cardiology on board RESPIRATORY - COVID-19 pneumonia. Currently not requiring supplemental oxygen. No need for any active treatment for COVID-19 Continue with symptomatic guaifenesin. GI/NUTRITION - Diet as tolerated. RENAL/LYTES - No significant electrolyte derangements. - No concerns at this time. ENDO - No history of diabetes or thyroid disease. BSGs per unit protocol. ISS --> gtt per unit policy. HEME - Stable H&H. ID - COVID-19 infection Currently relatively asymptomatic. Not requiring supplemental oxygen. No need for Decadron currently. Outside window of convalescent plasma/remdesivir therapy. --Prophylaxis VTE: Lovenox GI: None Lines: Peripheral Diet: Regular Plan: In/out: +2.2 L. Urine output not measured. Patient did not have any episodes since coming to the ICU. He does get bradycardic when he is asleep EKG does not show any blocks. No family history of sudden cardiac or unexplained car accidents. Cardiology on board for recommendations. Patient is hemodynamically stable to be sent out of the ICU. He will need telemetry monitoring continuous. Keep the patient on pads as well as atropine handy just in case. For COVID-19 continue with symptomatic treatment. Mucinex as needed. No indication for any DEXA or remdesivir. Please note the above document was generated using voice recognition software. It may contain grammatical, syntax or spelling errors.Any formal questions or concerns about the content, text or information contained within the body of this dictation should be directly addressed to the provider for clarification. (3) COVID-19: Admission and Anticipated Discharge Date Admission Date: September 08, 2020 Subjective Patient seen and examined at bedside. No acute distress, no adverse events overnight. Patient denies any dizziness, no headache, no nausea, no vomiting. At the time of examination he was saturating 98% on room air. Denies any cough. No chest congestion. No dysuria, no diarrhea. No palpitations. Review of Systems Review of Systems: All systems reviewed & are unremarkable except as noted in Subjective Physical Exam Physical Exam: Constitutional: No acute distress HEENT: EOMI, PERRLA Respiratory system: Good air entry bilaterally, no wheeze, no rhonchi, mild crackles bilaterally CVS: S1-S2 positive, no murmurs or gallops Abdomen: Soft, nontender, nondistended, positive bowel sounds x4 Extremities: +2 pulses bilaterally radialis/ dorsalis pedis, no cyanosis, no edema Neuro: Awake alert oriented x3 Psych: Normal mood and affect G/U: No Mckeon Skin: no rashes, warm and dry Lymphatic: no cervical or axillary lymphadenopathy Results & Data Results & Data ([facility]) Vital Signs (Past 12 Hours) Vital Signs Temp Pulse Pulse Resp BP BP Pulse Ox 09/09/20 10:21 74 09/09/20 07:06 36.8 C 56 L 15 108/55 L 95 09/09/20 06:30 64 17 99 09/09/20 06:06 54 L 16 107/59 L 96 09/09/20 06:00 54 L 16 95 09/09/20 05:30 53 L 17 96 09/09/20 05:06 52 L 16 104/62 96 09/09/20 05:00 54 L 16 96 09/09/20 04:30 54 L 16 95 09/09/20 04:06 55 L 17 110/61 96 09/09/20 04:00 52 L 16 96 09/09/20 03:30 57 L 25 H 94 09/09/20 03:14 52 L 14 115/67 96 09/09/20 03:06 92 H 20 75/70 L 96 09/09/20 03:00 55 L 16 92 09/09/20 02:30 56 L 16 92 09/09/20 02:06 61 16 114/62 94 09/09/20 02:00 56 L 17 93 09/09/20 01:30 54 L 19 96 09/09/20 01:06 84 18 119/74 97 09/09/20 01:00 70 26 H 93 09/09/20 00:30 37.0 C 64 21 97 09/09/20 00:23 37 C 77 18 137/77 09/09/20 00:08 71 25 H 09/09/20 00:05 137/77 09/08/20 23:30 72 20 136/82 96 09/08/20 23:15 71 18 140/79 09/08/20 23:00 83 17 139/80 97 09/09/20 06:19 09/09/20 06:19 Coding Level of Care Code 58252 Subseq Hosp Care Lvl 3 Diagnoses Sinus pause I45.5 Admitted to intensive care unit Z78.9 COVID-19 U07.1
--- NOTE | 2020-09-09 12:43 | Discharge Summary ---
Date of Service September 09, 2020 Admission HPI Per Admitting Provider Holden Spaulding is a 40yo C male with no significant past medical history presenting with Covid-19. Patient began having symptoms appx 8 days ago with loss of taste and smell, fatigue and myalgias. He was diagnosed with Covid 6 days ago at [facility]. His symptoms began to worsen yesterday and he developed a fever at home, worsening VILLALOBOS. He denies chest pain, palpitations, SOB. Cough is minimal. He has been monitoring his pulse ox at home which has been 94% or greater. His notes that he is visibly tachypneic at times. Upon arrival to the ER patient found to be afebrile, HR 91, BP 165/75, RR 18, 98% on room air. Patient was having blood drawn in the ER. He reports feeling warm and flushed. Nurse reports patient turned osorio in color and his eyes rolled back and he became unresponsive. On monitor patient was bradycardic then asystolic. A Code Blue was called. He received a brief course of chest compressions and regained pulse, sinus bradycardia on monitor. Patient lost his pulse a second time and was asystolic on monitor again. Chest compressions were resumed and patient was given calcium gluconate x 1gm and and 0.5 mg of Atropine. Patient returned to NSR. Patient with no complaints at this time. He has no personal history of cardiac disease or conduction abnormalities. No family history of premature CAD or SCD. No additional complaints at this time. ER Course: Albuterol 2 puffs, Magnesium x 1gm, Dexamethasone x 6mg, NSS x 2 liters, Atropine x 0.5mg, Calcium gluconate x 1gm Principal Diagnosis Covid-19 pneumonia, sinus arrest secondary to high vagal tone Discharge Exam Constitutional WD/WN, vitals as above Eyes + anicteric sclerae Neck trachea midline, no thyromegaly Respiratory normal respiratory effort, lungs clear to auscultation Cardiovascular RRR, no murmur, no edema Chest (Breasts) Chest: normal inspection of chest Gastrointestinal (Abdomen) normal bowel sounds, soft, nontender, no hepatosplenomegaly Musculoskeletal Extremities: extremities normal to inspection; no cyanosis and no clubbing Skin no rashes, warm and dry Neurologic moves all extremities and awake; no focal motor deficits Psychiatric A+Ox3, euthymic affect Lymphatic no lymphedema Discharge Data Allergies Allergy/AdvReac Type Severity Reaction Status Date / Time No Known Allergies Allergy Unverified 09/08/20 21:53 Consultations 09/08/20 22:07 ED Decision to Admit Stat 09/08/20 22:08 Consult Cardiology Stat 09/09/20 00:15 Consult Cardiology Routine Consult [employer] Grade Math Teacher Routine Ordered Studies 09/08/20 21:58 CT angio chest PE protocol Urgent Chest x-ray Echocardiogram Hospital Course (1) COVID-19: 40yo C male with no significant past medical history presenting with Covid-19 pneumonia. Patient remained afebrile presently, no respiratory distress. Maintained adequate oxygenation on room air greater than 94% throughout. Labs with leukopenia and lymphopenia. CRP elevated at 1.25. Otherwise unremarkable. Procalcitonin, Troponin, LDH, Ferritin and ESR are all within normal range. Patient was given 6mg Dexamethasone in the ER but this did not need to be continued He is outside the window for remdesivir and convalescent plasma and also did not have a severe case of Covid-19 There is no evidence of Covid myocarditis or pericarditis with negative troponin, no evidence on ECG or echocardiogram. CT angiogram chest negative for PE but did show multifocal pneumonia. He is minimally symptomatic with this. Patient is appx on day 9 of illness. He was doing well from the standpoint and stable for discharge home See sinus pauses/cardiac arrest as below (2) Cardiac arrest: Patient with three episodes of asystole while in the ER requiring brief course of CPR. He was administered Calcium gluconate and Atropine with ROSC and normal sinus rhythm. Patient with no underlying cardiac disease. EKG and troponin are normal. Mild hypokalemia of 3.4 which was being repleted. Limited bedside echocardiogram with structurally normal heart - no failure, effusion, WMA. CTA with no PE or other cardiovascular abnormalities. Formal echocardiogram also normal Initial episode occurred while patient was having his blood drawn and seemed to be preceded by sinus bradycardia which progressed to asystole. Patient reports prodromal symptom of feeling warm and flush. Uncertain if this represents exaggerated vagal response. He also has a history of presyncopal episodes in the past in response to blood draws and pain He was admitted to the ICU and seen by the straddle bug driver as well as the tractor drill operator Lyme serology was negative Electrolytes were repleted Seen by tractor drill operator to reviewed echocardiogram as well as ECG and determined that these episodes were not due to Brugada pattern or structural heart disease. He had only sinus bradycardia normal sinus rhythm on telemetry. Given his history of previous presyncopal episodes and the situation of blood draw causing this episode, was determined that this was all secondary to increased vagal tone. Advised patient not to exercise for least 2 weeks after Covid symptoms completely resolve as he is currently training for half marathon. If he develops any shortness of breath when he starts back to exercising, he should again rest. He is stable for discharge to home Ppx - Lovenox 40 BID was provided Code - Full Dispo -discharge to home (3) Sinus pause: As above Total Time Total Time Spent Total Time Spent (In Minutes): 35 minutes Total Time Includes: Examination of the Patient, Discharge Planning, Medication Reconciliation and Communication With Other Providers (Cardiology) Discharge Plan Discharge Items Patient Disposition: Home - Self-Care Reason For Visit: COVID 19 Discharge Diagnosis: Covid-19 pneumonia, sinus arrest secondary to high vagal tone Condition on Discharge: Good Activity: As commented below Lifting: Gradually increase as tolerated Bathing: No limitations Exercise Comment: No heavy exertion for 2 weeks after Covid symptoms resolve. Non-emergency contact: Primary Care Provider Call non-emergency contact if: you have any medication questions and your symptoms worsen Follow-up/Referrals: Guevara Messer [Primary Care Provider] - (Follow-up within 1-2 weeks.) Diet: Regular Addtl Attending Provider Instructions: You were admitted secondary to having sinus arrest or long pauses in your heartbeat after having blood drawn in the emergency room. This did require brief periods of CPR for resuscitation. Your cardiac evaluation was determined to be normal and you were seen by the tractor drill operator. You are having these sinus arrests secondary to increased tone of the vagus nerve in situations such as getting blood drawn or with pain. If you are to have blood draws in the future, please forewarn the chain builder that this could happen again. As for your Covid-19 pneumonia, fortunately your oxygen levels remained normal and you did not require any treatment for this. Please continue to check your pulse oximeter levels at home and if your levels drop below 94%, please contact your primary care physician to start you on dexamethasone 6 mg by mouth once daily x10 days. Otherwise, you should remain in quarantine with your family until it has been 10 days from the time your symptoms started which would be 09/10. Please follow-up with your primary care physician within 1 to 2 weeks. You do not have to follow-up with cardiology, but if you desire, you can schedule an appointment with either Dr. Bolden or Dr. Crabtree. Pending Studies at Discharge: No Stand-Alone Forms: My [facility] Medications and DC Order Prescriptions: Continued ibuprofen 200 mg Tablet 200 mg PO Q6H PRN (Reason: Fever) RF: 0 acetaminophen 500 mg Capsule 500 mg PO Q6H PRN (Reason: Pain) RF: 0 Discharge Orders: Discharge Order (Routine); Ordered 09/09/20 Ordered By: Eileen Garcia Admission Data Admit Date/Time: 09/08/20 22:44 Attending Provider: Eileen Garcia Admit Provider: Yohana Cabrera Primary Care Provider: Guevara Messer Other Providers: Prasad Bolden ; Yohana Cabrera ; Pepito Rob Other Interventions: Discharge Summary Assessment (RN) Last Done: 09/09/20 12:27 Coding Level of Care Code D/C Day Management >30 mins Diagnoses COVID-19 U07.1 Cardiac arrest I46.9 Sinus pause I45.5
[2020-09-09 15:04] LABS: Appearance Urine Clear (Clear); Bilirubin Urine Negative (Negative); Blood Urine Negative (Negative); Color Urine Yellow; Glucose Urine UA Negative (Negative); Ketones Urine Negative (Negative); Leukocyte Esterase Urine Negative (Negative); Nitrite Urine Negative (Negative); Protein Urine Negative (Negative); Specific Gravity Urine 1.018 (1.000-1.030); Urobilinogen Urine Negative (Negative); pH Urine 6.5 (4.5-7.5)
--- NOTE | 2020-09-09 16:08 | Electrocardiogram Report ---
Test Reason : Blood Pressure : / mmHG Vent. Rate : 076 BPM Atrial Rate : 076 BPM P-R Int : 150 ms QRS Dur : 098 ms QT Int : 360 ms P-R-T Axes : 024 053 040 degrees QTc Int : 405 ms Normal sinus rhythm Normal ECG When compared with ECG of 08-SEP-2020 21:44, (unconfirmed) No significant change was found Confirmed by Dipesh Bello ([id number]) on 09/09/2020 4:08:41 PM Referred By: REFERRED SELF Confirmed By:Dixon Bello
--- NOTE | 2020-09-09 16:08 | Electrocardiogram Report ---
Test Reason : Blood Pressure : / mmHG Vent. Rate : 074 BPM Atrial Rate : 074 BPM P-R Int : 162 ms QRS Dur : 094 ms QT Int : 354 ms P-R-T Axes : 066 044 047 degrees QTc Int : 392 ms Normal sinus rhythm Normal ECG No previous ECGs available Confirmed by Dipesh Bello ([id number]) on 09/09/2020 4:07:57 PM Referred By: REFERRED SELF Confirmed By:Dixon Bello
== END 2020-09-09 13:30 | disposition home or self-care (01) | DRG 177 ==
LOC: ED 20:50 → SUATTDRO 22:44 → 2E 22:44 → 2S 09-09 09:29
DX: Z82.49 Family history of ischemic heart disease and other diseases of the circulatory system; U07.1 COVID-19; I45.5 Other specified heart block; E87.6 Hypokalemia; I46.9 Cardiac arrest, cause unspecified